=== PATIENT | female | born 1945 | race Caucasian/White ===

== ENCOUNTER → 2024-01-03 16:00 | Outpatient (REF) | payer MEDICARE, BC, SELFPAY | LOC: RAD 16:00 | PROVIDERS: ATTENDING PHYSICIAN Family Medicine | DX: M21.611 Bunion of right foot (principal); M20.41 Other hammer toe(s) (acquired), right foot; M25.50 Pain in unspecified joint; M25.60 Stiffness of unspecified joint, not elsewhere classified | CPT/HCPCS: 73130; 73630 ==

== ENCOUNTER → 2024-01-11 15:54 | Outpatient (REF) | payer MEDICARE, BC, SELFPAY | LOC: RAD 15:54 | PROVIDERS: ATTENDING PHYSICIAN Family Medicine | DX: H93.13 Tinnitus, bilateral (principal) | CPT/HCPCS: 70450 ==

== ENCOUNTER → 2024-01-12 12:41 | Outpatient (REF) | payer MEDICARE, BC, SELFPAY ==
[2024-01-12 13:27] LABS: % Basophils 1.5 % (0-2); % Eosinophils 2.8 % (0-6); % Immature Granulocytes 0.5 % (0-0.5); % Lymphocytes 28.1 % (20.5-51.1); % Monocytes 10.3 % (1.7-9.3); % Neutrophils 56.8 % (42.2-75.2); Absolute Basophils 0.1 10^3/uL (0-0.2); Absolute Eosinophils 0.1 10^3/uL (0-0.7); Absolute Lymphocytes 1.1 10^3/uL (1.2-3.4); Absolute Monocytes 0.4 10^3/uL (0.1-0.6); Absolute Neutrophils 2.3 10^3/uL (1.4-6.5); Hematocrit 40.2 % (37.0-47.0); Hemoglobin 13.6 g/dL (12.0-16.0); Mean Corp Hgb Conc. 33.8 g/dL (33.0-37.0); Mean Corpuscular Hgb 30.1 pg (27.0-31.0); Mean Corpuscular Volume 88.9 fL (81.0-99.0); Mean Platelet Volume 9.8 fL (7.4-10.4); Nucleated Red Blood Cells % 0 %; Platelet Count 202 10^3/uL (130-400); Red Blood Cell Count 4.52 10^6/uL (4.20-5.40); Red Cell Dist. Width 12.4 % (11.5-14.5)
[2024-01-12 13:52] LABS: ALT (SGPT) 34 U/L (0-35); AST (SGOT) 40 U/L (14-36); Albumin 4.2 g/dl (3.5-5.0); Alkaline Phosphatase 77 U/L (38-126); Blood Urea Nitrogen 24 mg/dl (7-17); Calcium 9.4 mg/dl (8.4-10.2); Carbon Dioxide 29 mmol/L (22-30); Chloride 102 mmol/L (98-107); Glucose 95 mg/dl (70-99); LDH 264 U/L (120-246); Potassium 4.2 mmol/L (3.5-5.1); Sodium 135 mmol/L (135-145); Total Bilirubin 0.6 mg/dl (0.2-1.3); Total Cholesterol 222 mg/dl (50-199); Total Protein 6.6 g/dl (6.3-8.2); Triglyceride 50 mg/dl (10-149); Very Low Density Lipoprotein 10 mg/dl (0-30); eGFR > 60.00
[2024-01-12 14:02] LABS: HDL Cholesterol 119 mg/dl; LDL Cholesterol, Calculated 93 mg/dl
[2024-01-12 14:27] LABS: Ferritin 19.5 ng/ml (11.1-264.0)
[2024-01-12 15:15] LABS: TSH 0.49 uIU/ml (0.47-4.68)
== END ==
LOC: REG 12:41
PROVIDERS: ATTENDING PHYSICIAN Family Medicine
DX: M25.60 Stiffness of unspecified joint, not elsewhere classified (principal); E78.2 Mixed hyperlipidemia; R63.4 Abnormal weight loss; M25.50 Pain in unspecified joint; R73.01 Impaired fasting glucose
CPT/HCPCS: 36415; 80053; 80061; 82728; 83615; 84443; 85025

== ENCOUNTER → 2024-01-17 12:46 | Outpatient (REF) | payer MEDICARE, BC, SELFPAY ==
[2024-01-17 15:14] LABS: TSH 0.58 uIU/ml (0.47-4.68)
[2024-01-19 15:34] LABS: Rheumatoid Agglutinin Less Than 10 IU (<10 IU)
[2024-01-21 02:05] LABS: Alpha 1 Globulin 0.26 g/dL (0.19-0.46); SPEP IFE Reflex Not Done; Total Protein-Electrophoresis 6.5 g/dL (6.3-8.2)
== END ==
LOC: REG 12:46
PROVIDERS: ATTENDING PHYSICIAN Family Medicine
DX: M25.60 Stiffness of unspecified joint, not elsewhere classified (principal); E78.2 Mixed hyperlipidemia; R63.4 Abnormal weight loss
CPT/HCPCS: 36415; 82728; 84155; 84165; 84443; 86430

== ENCOUNTER → 2024-05-11 11:19 | Outpatient (REF) | payer MEDICARE, BC, SELFPAY ==
[2024-05-11 12:33] LABS: % Eosinophils 2.3 % (0-6); % Immature Granulocytes 0.2 % (0-0.5); % Monocytes 6.4 % (1.7-9.3); % Neutrophils 72.1 % (42.2-75.2); Absolute Basophils 0.1 10^3/uL (0-0.2); Absolute Eosinophils 0.1 10^3/uL (0-0.7); Absolute Lymphocytes 1.1 10^3/uL (1.2-3.4); Absolute Monocytes 0.4 10^3/uL (0.1-0.6); Absolute Neutrophils 4.4 10^3/uL (1.4-6.5); Hemoglobin 13.4 g/dL (12.0-16.0); Mean Corp Hgb Conc. 32.7 g/dL (33.0-37.0); Mean Corpuscular Hgb 29.5 pg (27.0-31.0); Mean Corpuscular Volume 90.3 fL (81.0-99.0); Mean Platelet Volume 9.8 fL (7.4-10.4); Nucleated Red Blood Cells % 0 %; Platelet Count 199 10^3/uL (130-400); Red Blood Cell Count 4.54 10^6/uL (4.20-5.40); Red Cell Dist. Width 12.5 % (11.5-14.5); Reticulocyte Count 1.1 % (0.4-2.8); White Blood Cell Count 6.1 10^3/uL (4.8-10.8)
[2024-05-11 12:53] LABS: ALT (SGPT) 31 U/L (0-35); AST (SGOT) 35 U/L (14-36); Albumin 4.3 g/dl (3.5-5.0); Alkaline Phosphatase 82 U/L (38-126); Amylase 101 U/L (30-110); Blood Urea Nitrogen 35 mg/dl (7-17); Calcium 10.1 mg/dl (8.4-10.2); Carbon Dioxide 30 mmol/L (22-30); Chloride 103 mmol/L (98-107); Glucose 94 mg/dl (70-99); Iron 111 ug/dl (37-170); LDH 262 U/L (120-246); Lipase 262 U/L (23-300); Sodium 139 mmol/L (135-145); Total Bilirubin 0.4 mg/dl (0.2-1.3); Total Protein 6.7 g/dl (6.3-8.2); eGFR > 60.00
[2024-05-11 12:56] LABS: Erythrocyte Sed Rate 10 mm/hour (0-20)
[2024-05-11 13:02] LABS: Percent Saturation 29 % (20-50); Total Iron Binding Capacity 379 ug/dl (265-497)
[2024-05-11 13:22] LABS: Ferritin 13.3 ng/ml (11.1-264.0)
[2024-05-11 13:53] LABS: Folate > 20.0 ng/ml (2.76-20); Vitamin B12 > 1000 pg/ml (239-931)
== END ==
LOC: REG 11:19
PROVIDERS: ATTENDING PHYSICIAN Internal Medicine Hematology & Oncology
DX: R63.4 Abnormal weight loss (principal); D72.819 Decreased white blood cell count, unspecified; D50.9 Iron deficiency anemia, unspecified; D51.9 Vitamin B12 deficiency anemia, unspecified
CPT/HCPCS: 36415; 80053; 82150; 82607; 82728; 82746; 82784; 83521; 83540; 83550; 83615; 83690; 84155; 84165; 84550; 85025; 85045; 85652; 86334

== ENCOUNTER → 2024-09-10 14:56 | Outpatient (REF) | payer MEDICARE, BC, SELFPAY ==
[2024-09-10 16:12] LABS: % Basophils 0.9 % (0-2); % Eosinophils 4.7 % (0-6); % Immature Granulocytes 0.2 % (0-0.5); % Lymphocytes 19.4 % (20.5-51.1); % Monocytes 9.5 % (1.7-9.3); % Neutrophils 65.3 % (42.2-75.2); Absolute Eosinophils 0.2 10^3/uL (0-0.7); Absolute Lymphocytes 0.9 10^3/uL (1.2-3.4); Absolute Monocytes 0.4 10^3/uL (0.1-0.6); Hematocrit 39.8 % (37.0-47.0); Hemoglobin 13.1 g/dL (12.0-16.0); Mean Corp Hgb Conc. 32.9 g/dL (33.0-37.0); Mean Corpuscular Hgb 29.4 pg (27.0-31.0); Mean Corpuscular Volume 89.2 fL (81.0-99.0); Nucleated Red Blood Cells % 0 %; Platelet Count 201 10^3/uL (130-400); Red Blood Cell Count 4.46 10^6/uL (4.20-5.40); Red Cell Dist. Width 12.8 % (11.5-14.5); White Blood Cell Count 4.6 10^3/uL (4.8-10.8)
[2024-09-10 16:34] LABS: LDH 283 U/L (120-246)
[2024-09-13 01:58] LABS: ANA, IgG Reflex to HEp-2 None Detected (None Detected)
== END ==
LOC: REG 14:56
PROVIDERS: ATTENDING PHYSICIAN Internal Medicine Hematology & Oncology; FAMILY PHYSICIAN Family Medicine
DX: R63.4 Abnormal weight loss (principal); D72.819 Decreased white blood cell count, unspecified; Z13.0 Encounter for screening for diseases of the blood and blood-forming organs and certain disorders involving the immune mechanism
CPT/HCPCS: 36415; 83615; 85025; 86038

== ENCOUNTER → 2024-09-21 11:13 | Outpatient (REF) | payer MEDICARE, BC, SELFPAY | LOC: RAD 11:13 | PROVIDERS: ATTENDING PHYSICIAN Internal Medicine Hematology & Oncology; FAMILY PHYSICIAN Family Medicine | DX: R63.4 Abnormal weight loss (principal); D72.819 Decreased white blood cell count, unspecified; Z13.0 Encounter for screening for diseases of the blood and blood-forming organs and certain disorders involving the immune mechanism; D80.1 Nonfamilial hypogammaglobulinemia; R06.02 Shortness of breath | CPT/HCPCS: 36415; 80053 ==

== ENCOUNTER → 2024-09-21 12:00 | Outpatient (REF) | payer MEDICARE, BC, SELFPAY ==
[2024-09-21 12:44] LABS: ALT (SGPT) 33 U/L (0-35); AST (SGOT) 37 U/L (14-36); Albumin 4.5 g/dl (3.5-5.0); Alkaline Phosphatase 65 U/L (38-126); Blood Urea Nitrogen 33 mg/dl (7-17); Calcium 10.4 mg/dl (8.4-10.2); Carbon Dioxide 31 mmol/L (22-30); Chloride 103 mmol/L (98-107); Glucose 94 mg/dl (70-99); Potassium 4.2 mmol/L (3.5-5.1); Sodium 144 mmol/L (135-145); Total Bilirubin 0.4 mg/dl (0.2-1.3); Total Protein 6.9 g/dl (6.3-8.2); eGFR > 60.00
== END ==
LOC: REG 12:00
PROVIDERS: ATTENDING PHYSICIAN Internal Medicine Hematology & Oncology; FAMILY PHYSICIAN Family Medicine
DX: R63.4 Abnormal weight loss (principal); D72.819 Decreased white blood cell count, unspecified; Z13.0 Encounter for screening for diseases of the blood and blood-forming organs and certain disorders involving the immune mechanism; D80.1 Nonfamilial hypogammaglobulinemia; R06.02 Shortness of breath
CPT/HCPCS: 36415; 80053

== ENCOUNTER → 2024-09-25 16:03 | Outpatient (REF) | payer MEDICARE, BC, SELFPAY | LOC: RAD 16:03 | PROVIDERS: ATTENDING PHYSICIAN Internal Medicine Hematology & Oncology; FAMILY PHYSICIAN Family Medicine | DX: R63.4 Abnormal weight loss (principal); D72.819 Decreased white blood cell count, unspecified; Z13.0 Encounter for screening for diseases of the blood and blood-forming organs and certain disorders involving the immune mechanism; D80.1 Nonfamilial hypogammaglobulinemia; R06.02 Shortness of breath | CPT/HCPCS: 71260; Q9967 ==

== ENCOUNTER → 2025-04-16 14:48 | Outpatient (REF) | payer MEDICARE, BC, SELFPAY ==
[2025-04-16 16:43] LABS: % Basophils 1.2 % (0-2); % Eosinophils 3.2 % (0-6); % Immature Granulocytes 0.2 % (0-0.5); % Lymphocytes 15.1 % (20.5-51.1); % Monocytes 9.6 % (1.7-9.3); % Neutrophils 70.7 % (42.2-75.2); Absolute Basophils 0.1 10^3/uL (0-0.2); Absolute Eosinophils 0.2 10^3/uL (0-0.7); Absolute Lymphocytes 0.9 10^3/uL (1.2-3.4); Absolute Monocytes 0.6 10^3/uL (0.1-0.6); Hematocrit 38.1 % (37.0-47.0); Hemoglobin 12.7 g/dL (12.0-16.0); Mean Corp Hgb Conc. 33.3 g/dL (33.0-37.0); Mean Corpuscular Hgb 30.4 pg (27.0-31.0); Mean Corpuscular Volume 91.1 fL (81.0-99.0); Mean Platelet Volume 10.1 fL (7.4-10.4); Nucleated Red Blood Cells % 0 %; Platelet Count 198 10^3/uL (130-400); Red Blood Cell Count 4.18 10^6/uL (4.20-5.40); Red Cell Dist. Width 12.9 % (11.5-14.5); White Blood Cell Count 5.7 10^3/uL (4.8-10.8)
[2025-04-16 17:04] LABS: ALT (SGPT) 32 U/L (0-35); AST (SGOT) 32 U/L (14-36); Alkaline Phosphatase 65 U/L (38-126); Blood Urea Nitrogen 37 mg/dl (7-17); Calcium 9.4 mg/dl (8.4-10.2); Carbon Dioxide 31 mmol/L (22-30); Chloride 106 mmol/L (98-107); Glucose 97 mg/dl (70-99); Potassium 4.3 mmol/L (3.5-5.1); Sodium 137 mmol/L (135-145); Total Bilirubin 0.3 mg/dl (0.2-1.3); Total Protein 6.1 g/dl (6.3-8.2); eGFR > 60.00
[2025-04-16 17:05] LABS: Iron 64 ug/dl (37-170)
[2025-04-16 17:14] LABS: Percent Saturation 18 % (20-50); Total Iron Binding Capacity 353 ug/dl (265-497)
[2025-04-16 17:58] LABS: Ferritin 16.2 ng/ml (11.1-264.0)
[2025-04-16 18:29] LABS: Folate > 20.0 ng/ml (2.76-20); Vitamin B12 > 1000 pg/ml (239-931)
[2025-04-17 08:52] LABS: Glycohemoglobin (HgbA1c) 5.3 % (4.0-5.6)
== END ==
LOC: RAD 14:48
PROVIDERS: ATTENDING PHYSICIAN Family Medicine
DX: R20.2 Paresthesia of skin (principal); M25.552 Pain in left hip; R73.01 Impaired fasting glucose
CPT/HCPCS: 36415; 73502; 80053; 82607; 82728; 82746; 83036; 83540; 83550; 85025

== ENCOUNTER 2025-05-02 12:58 | Emergency (ER) | payer MEDICARE, BC, SELFPAY ==
[2025-05-02 13:03] VITALS: BP 127/81
[2025-05-02 14:04] VITALS: BMI 22.0
[2025-05-02 14:05] VITALS: BP 138/88
[2025-05-02 14:16] LABS: COVID-19 Antigen Negative (Negative)
--- NOTE | 2025-05-02 14:25 | ED.GENMED ---
History of Present Illness
General
Chief Complaint: Cold/Flu/URI Symptoms
Source: patient
Exam Limitations: none
Time Seen by Provider: 05/02/25 14:09
History of Present Illness
History of Present Illness:
79yoF with a history of hypertension and seasonal allergies presenting for evaluation of URI symptoms. Symptoms began 4 days ago with a sore throat. She was seen at urgent care 2 days ago and had a negative strep test. She was diagnosed with a
viral illness although was also given a prescription for doxycycline. Patient did not start this after reading the side effect profile. She is experiencing congestion and a cough. Cough is productive of clear phlegm. No fevers. No chest pain or
shortness of breath. Patient's boss encouraged her to come to the ED due to her persistent symptoms. She works at a [employer] and believes that is where she got sick.
Past History
Past History
ED Past Medical History: HTN and Hypercholesterolemia
ED Past Surgical History: Tonsilectomy and Other
Social History
Tobacco: Non-smoker
Employment: Employed
Phy Exam
General Physical Exam
General Presentation: well appearing and no apparent distress
General Skin: warm and dry
General Habitus: normal
General Mental: alert
ENT Exam
ENT Exam: TM's normal, normocephalic and other (Mild erythema to posterior oropharynx. +Postnasal drip)
Cardiovascular Exam
Cardiovascular Exam: regular rate/rhythm
Pulmonary Exam
Pulmonary Exam: lungs clear, no respiratory distress, no rales, no crackles, no rhonchi and no wheezing
Neurological Exam
Neurological Exam: alert
[place] Coma Scale
Eye Opening: Spontaneous
Verbal Response: Oriented
Motor Response: Obeys Commands
GCS Total Score: 15
Skin Exam
Skin Exam: normal color and warm/dry
Psychiatric Exam
Psychiatric Exam: normal mood/affect
Course
Orders/Labs/Results
Orders:
Orders
05/02/25 13:08
COVID-19 Antigen Urgent
Source: Nasal Swab
Influenza A+B Rapid Molecular Urgent
DAVIS Source: Nasal Swab
Specimen Description:
05/02/25 14:24
CR Chest - 2 Views Urgent
Comment:
Reason For Exam: cough
Vital Signs
Initial and Last Documented VS:
Initial Vital Signs
Temp Pulse Resp BP Pulse Ox
98.1 F 91 16 127/81 98
05/02/25 13:03 05/02/25 13:03 05/02/25 13:03 05/02/25 13:03 05/02/25 13:03
Last Documented Vital Signs
Temp Pulse Resp BP Pulse Ox
98.1 F 91 16 127/81 79
05/02/25 13:03 05/02/25 13:03 05/02/25 13:03 05/02/25 13:03 05/02/25 14:04
MDM/Problems Addressed
Differential Diagnosis Includes:
79yoF here with URI symptoms x 4 days. C/o sore throat, congestion, cough. No fevers. No SOB. VSS and oxygen saturation 98% on room air. She is well appearing in no distress. She is speaking in full sentences without difficulty. Differential
diagnosis includes but is not limited to: URI, viral illness, bronchitis, pneumonia
Initial ED plan: Check COVID/flu swab and CXR.
*Critical Care Note
Total Time (30-74mins, 75-104mins- exclusive of procedures): Not Applicable
Update Note
Update Note:
Viral testing negative. CXR is clear without infiltrates. Presentation consistent with viral URI. Also suspect a component of postnasal drip. Oxygen saturation documented as 79% which is a documentation error. I rechecked oxygen saturation during
reassessment and she is 98-99% on room air. No indication for abx. Supportive care discussed including hydration, Flonase, honey, humidifier. Advised f/u with PCP and ED return precautions reviewed. Patient discharged in stable condition.
ED Attending Note
-
Portions of this chart may have been created with voice recognition software.� Occasional wrong word or��sound alike� substitutions may have occurred due to the inherent limitations of voice recognition software.
Discharge Plan
Departure
Patient Disposition: Home (Routine Discharge)
Date of Disposition: 05/02/25
Time of Disposition: 15:27
Patient with high blood pressure during this ER visit?: No
Discharge Problem:
Viral URI with cough
Instructions: Viral Upper Respiratory Infection, Adult (DC)
Prescriptions:
No Action
penicillin V potassium 500 mg tablet
500 mg PO QID Qty: 28 0RF
Referrals:
UNKNOWN - PT DOES,NOT KNOW [Family Provider]
Activity Restrictions/Additional Instructions:
Drink plenty of fluids. Use honey and humidifier for cough. Use Flonase nasal spray daily for congestion.
Please follow-up with your family doctor. Return to the ER with any new or worsening symptoms including trouble breathing.
Interventions
Interventions:
*Risk Screen - Suicide Last Done: 05/02/25 13:05
*General Assessment Last Done: 05/02/25 14:04
*Neglect/Abuse Screening Last Done: 05/02/25 13:05
*ED- Fall Risk Assessment Last Done: 05/02/25 14:04
*ED COVID-19 Vaccine History Last Done: 05/02/25 14:04
ED- Pulmonary Assessment Last Done: 05/02/25 14:04
Discharge Date and Time
Print Language: ARABIC
--- NOTE | 2025-05-02 16:14 | EDRN ---
Reviewed discharge instructions with patient. Verbalized understanding. Ambulated with steady gait to the lobby.
[2025-05-02 16:15] VITALS: BP 126/74
== END 2025-05-02 16:05 | disposition home or self-care (01) ==
LOC: EMR 12:58
PROVIDERS: Emergency Medicine; EMERGENCY PHYSICIAN Emergency Medicine
DX: J06.9 Acute upper respiratory infection, unspecified (principal); B97.89 Other viral agents as the cause of diseases classified elsewhere; I10 Essential (primary) hypertension; Z11.52 Encounter for screening for COVID-19
CPT/HCPCS: 99284; 71046; 87502; 87811

== ENCOUNTER → 2025-07-11 08:13 | Outpatient (REF) | payer MEDICARE, BC, SELFPAY | LOC: EMG 08:13 | PROVIDERS: ATTENDING PHYSICIAN Family Medicine; FAMILY PHYSICIAN Family Medicine | DX: Z78.0 Asymptomatic menopausal state (principal); I65.23 Occlusion and stenosis of bilateral carotid arteries; R20.2 Paresthesia of skin; Z82.49 Family history of ischemic heart disease and other diseases of the circulatory system | CPT/HCPCS: 75571; 93880; 95886; 95911 ==

== ENCOUNTER → 2025-09-02 09:12 | Outpatient (REF) | payer MEDICARE, BC, SELFPAY ==
[2025-09-02 11:49] LABS: Hematocrit 39.3 % (37.0-47.0); Hemoglobin 12.7 g/dL (12.0-16.0); Mean Corp Hgb Conc. 32.3 g/dL (33.0-37.0); Mean Corpuscular Volume 91.4 fL (81.0-99.0); Nucleated Red Blood Cells % 0 %; Platelet Count 194 10^3/uL (130-400); Red Cell Dist. Width 13.2 % (11.5-14.5)
[2025-09-02 12:44] LABS: LDH 277 U/L (120-246)
[2025-09-02 13:13] LABS: Glycohemoglobin (HgbA1c) 5.4 % (4.0-5.6)
== END ==
LOC: RAD 09:12
PROVIDERS: ATTENDING PHYSICIAN Family Medicine
DX: M85.89 Other specified disorders of bone density and structure, multiple sites (principal); R73.01 Impaired fasting glucose; R63.4 Abnormal weight loss; R53.83 Other fatigue; R20.2 Paresthesia of skin; R74.02 Elevation of levels of lactic acid dehydrogenase [LDH]; Z13.29 Encounter for screening for other suspected endocrine disorder; E55.9 Vitamin D deficiency, unspecified; R79.89 Other specified abnormal findings of blood chemistry
CPT/HCPCS: 36415; 77080; 83036; 83615; 85025